=== PATIENT | male | born 1975 | race Caucasian/White ===

== ENCOUNTER 2024-07-20 07:32 | Emergency (ER) | payer OTHER ==
[~2024-07-20] VITALS: Ht 205.7 cm; Wt 101.9 kg
[2024-07-20] MEDS ORDERED: BACTRIM DS TAB1 EACH PO (08:02)
[2024-07-20] MEDS ORDERED: CLINDAMYCIN HC150 MG PO (08:02)
[2024-07-20 08:07] VITALS: BP 155/87
== END 2024-07-20 08:09 | disposition home or self-care (01) ==
LOC: ED 07:32
DX: L03.114 Cellulitis of left upper limb (principal)
CPT/HCPCS: 99283